=== PATIENT | female | born 1955 | race Caucasian/White ===

== ENCOUNTER 2017-11-19 07:25 | Inpatient (IN) | payer OTHER ==
[2017-11-18 11:33] LABS: BASOPHILS 0.3 % (0-2); EOSINOPHILS 3.5 % (0-7); HEMATOCRIT 40.3 % (36.0-48.0); IMMATURE GRANULOCYTES 0.2 % (0-5); LYMPHOCYTES 28.4 % (15-50); MCH 30.4 pg (26.0-34.0); MCHC 32.3 g/dL (31.0-37.0); MCV 94.4 fL (80.0-100.0); MEAN PLATELET VOLUME 9.7 fL (7.4-10.4); MONOCYTES 9.9 % (2-11); NEUTROPHILS 57.7 % (40-80); PLATELET COUNT 191 10x3/uL (130-400); RBC 4.27 10x6/uL (4.00-5.40); RDW 13.8 % (11.5-14.5); WBC 5.8 10x3/uL (4.8-10.8)
[2017-11-18 11:42] LABS: ANION GAP 10.3 mmol/L (8-16); CALCIUM 9.1 mg/dL (8.5-10.1); CARBON DIOXIDE 30.3 mmol/L (21.0-32.0); CREATININE - SERUM 0.9 mg/dL (0.6-1.3); POTASSIUM - SERUM 3.6 mmol/L (3.5-5.1)
[~2017-11-19] VITALS: Ht 160 cm; Wt 86.6 kg
--- NOTE | ~2017-11-19 | OP ---
PATIENT NAME: KYLE NÚÑEZ MEDICAL RECORD: [id number] LOCATION:[id number] ADMISSION DATE:11/19/17 SURGEON: JAREK RICO MD DATE OF OPERATION: 11/19/2017 PREOPERATIVE DIAGNOSES: 1. Rectosigmoid polyps. 2. Ascending colon polyps. 3. Hyperthyroidism. 4. Hypertension. 5. Hypercholesterolemia. POSTOPERATIVE DIAGNOSES: 1. Rectosigmoid polyps. 2. Ascending colon polyps. 3. Hyperthyroidism. 4. Hypertension. 5. Hypercholesterolemia. PROCEDURE: 1. Hand-assisted laparoscopic right hemicolectomy. 2. Hand-assisted laparoscopic sigmoid colectomy/anterior resection. SURGEON: Jarek Rico MD TRAFFIC SIGN SUPERVISOR: Mayra Dejesus APRN REPORT OF OPERATION: The patient's abdomen was prepped and draped in sterile fashion. A skin incision was made in the midline in the suprapubic region. Electrocautery was used to dissect through the subcutaneous tissues and fascia and we bluntly entered the abdominal cavity. Once inside, the Gelport was inserted with a 5-mm trocar within it. Under direct visualization, a 5 mm trocar was placed in the right lateral abdomen and another was placed in the left lateral abdomen. We started out by mobilizing the patient's right colon. We started on the white line of Toldt and on the right pericolic gutter and took down this portion of the lateral adhesions, mobilizing the colon medially. We mobilized the patient's cecum, right colon and came around the hepatic flexure. Above the hepatic flexure, we took down some of the attachments between the patient's omentum and the transverse colon. We continued this dissection across towards the patient's splenic flexure. Eventually, we left this in place and approached the patient's splenic flexure and performed a mobilization of this portion of the colon by taking down the white line of Toldt of the left pericolic gutter. Again, this portion of the colon was mobilized medially. The colon appeared to be fairly free floating at this point. We came down to sigmoid attachments to the pelvis and abdominal wall. These were taken down using electrocautery. I could then feel the mass present down deep in the patient's pelvis and the rectum. The peritoneum and the rectum was scored on both sides and we began our dissection posterior to the rectum. We got in the avascular plane overlying the patient's sacrum and continued this dissection down posteriorly until we were past the mass. Once we were past the mass, then a window was made in the mesorectum. The rectum was then transected using a 45 blue load Endo-GLORIA stapler and the mesorectum was transected with a couple of fires of a 45 white load Endo-GLORIA stapler. We eventually mobilized some more of the sigmoid colon and eviscerated this through the wound protector. The sigmoid colon was transected using electrocautery about its mid portion. The mesentery OPERATIVE REPORT [id number] KYLE NÚÑEZ was then taken down with sequential clamps and fires of a Harmonic scalpel. The specimen was opened up on the back table and we could see that the large mass was present, but it was very near the staple line. There were a few other small polyps present in the colon. When I looked in the proximal aspect of the sigmoid colon. There was 1 small polyp that was still present. This was excised using electrocautery and sent off for permanent specimen. A pursestring was then placed at the base of the colon and a 29 EEA anvil stapler was inserted. The pursestring was tied down tightly and this portion of the colon was placed back into the abdominal cavity. We then eviscerated the patient's right colon through the wound protector. The terminal ileum was transected with a 45 blue load Endo-GLORIA stapler and the proximal transverse colon was transected with a 45 blue load Endo-GLORIA stapler. The mesentery was taken down with multiple fires of the Harmonic scalpel followed by 2-0 silk on the right colic vessels. This portion of the colon was opened up on the back table and multiple small polyps were noted throughout this portion. A bvak-lz-fypk anastomosis was made between the terminal ileum and the transverse colon. This was done using a 45 blue load Endo-GLORIA stapler. The enterotomies were then closed with a 30 blue load TA stapler. I oversewed the staple line using Lemberted 3-0 silks and then placed this anastomosis in the abdominal cavity. The decision was made to take a little bit more of the patient's rectum since the large polyp was so close to the distal staple line. Dissection was performed of the proximal rectum and eventually we were able to fire a 45 blue load Endo GI stapler across the rectum about 2-3 cm distal to the previous transections. This portion was sent off for permanent specimen. At this point, the 29 EEA stapler was inserted through the patient's rectum and the anastomosis was performed with the indwelling 29 EEA anvil. At the conclusion of this, there was noted to be 2 intact rings of tissue in the EEA stapler device and there was no sign of a leak from the anastomosis when we instilled air through the rectum when the anastomosis was under water. We then irrigated out the abdomen thoroughly with normal saline and took time to assure there was no sign of any active bleeding. The ports and insufflation were then removed. A 19-[place] round Rishi drain was inserted into the abdomen through the left lateral abdominal incision. This was placed retrorectal in the pelvis and sutured into place with a 2-0 nylon. The midline fascia was then closed with running #1 loop PDS' times 2. The subcutaneous tissues were irrigated out thoroughly and reapproximated with interrupted 3-0 Vicryl. The skin incisions were all closed with shannon. During the procedure, a 12-mm trocar had been inserted in the right lower quadrant for firing of the stapler. COMPLICATIONS: None. CONDITION: Stable. ANESTHESIA: General endotracheal. BLOOD LOSS: 50 mL. TRANSINT:[id number] Voice Confirmation ID: [id number] DOCUMENT ID: [id number] OPERATIVE REPORT [id number] KYLE NÚÑEZ CHRISTIAN MD at 1913 CC: RONN TINEO [id number] DICTATION DATE: 11/19/17 1414 TOTER: 11/19/17 1433 ADM IN [facility] [address] [place] [address]
[~2017-11-19 07:25] MED LIST: ASPIRIN EC81 M1 PO; CALCIUM 600 +1 EAC3 PO; CARDURA4 MG PO; LEVOXYL25 MCG PO; PRAVACHOL40 MG PO
[2017-11-19 08:22] VITALS: BP 116/78; BMI 33.9
[2017-11-19 15:35] VITALS: BP 95/53
[2017-11-19 15:57] VITALS: BP 105/49
[2017-11-19 20:00] VITALS: BP 111/51
[2017-11-20] VITALS (7 sets, daily range): BP systolic 89–116; BP diastolic 44–61; Ht 160 cm; Wt 86.6 kg
[2017-11-20 05:53] LABS: BASOPHILS 0 % (0-2); EOSINOPHILS 0 % (0-7); HEMATOCRIT 32.5 % (36.0-48.0); IMMATURE GRANULOCYTES 0.2 % (0-5); MCH 29.9 pg (26.0-34.0); MCHC 31.7 g/dL (31.0-37.0); MCV 94.5 fL (80.0-100.0); MEAN PLATELET VOLUME 10.3 fL (7.4-10.4); MONOCYTES 8.3 % (2-11); NEUTROPHILS 83.5 % (40-80); PLATELET COUNT 170 10x3/uL (130-400); RBC 3.44 10x6/uL (4.00-5.40)
[2017-11-20 06:09] LABS: CALC OSMOLALITY 288 mosm/kg (275-300); CALCIUM 7.9 mg/dL (8.5-10.1); CARBON DIOXIDE 27.7 mmol/L (21.0-32.0); CHLORIDE - SERUM 110 mmol/L (98-107); CREATININE - SERUM 0.8 mg/dL (0.6-1.3); GLUCOSE 106 mg/dL (74-106); POTASSIUM - SERUM 3.7 mmol/L (3.5-5.1); SODIUM 146 mmol/L (136-145); eGFR NON AFRICAN AMERICAN 77 mL/min (90-120)
[2017-11-20 06:10] LABS: UREA NITROGEN 6 mg/dL (7-18)
[2017-11-20 06:13] LABS: HEMOGLOBIN 10.3 g/dL (12-16); WBC 8.8 10x3/uL (4.8-10.8)
[2017-11-21 00:41] VITALS: BP 101/64
[2017-11-21 04:38] VITALS: BP 102/48
[2017-11-21 08:41] VITALS: BP 128/73
[2017-11-21 08:41] LABS: BASOPHILS 0.1 % (0-2); EOSINOPHILS 1.1 % (0-7); HEMATOCRIT 29.6 % (36.0-48.0); HEMOGLOBIN 9.4 g/dL (12-16); IMMATURE GRANULOCYTES 0.2 % (0-5); LYMPHOCYTES 15.1 % (15-50); MCH 30.6 pg (26.0-34.0); MCHC 31.8 g/dL (31.0-37.0); MCV 96.4 fL (80.0-100.0); MONOCYTES 6.2 % (2-11); NEUTROPHILS 77.3 % (40-80); PLATELET COUNT 172 10x3/uL (130-400); RBC 3.07 10x6/uL (4.00-5.40); RDW 14.4 % (11.5-14.5); WBC 9.5 10x3/uL (4.8-10.8)
[2017-11-21 08:49] LABS: CALC OSMOLALITY 282 mosm/kg (275-300); CALCIUM 8.1 mg/dL (8.5-10.1); CARBON DIOXIDE 26.3 mmol/L (21.0-32.0); CHLORIDE - SERUM 110 mmol/L (98-107); CREATININE - SERUM 0.8 mg/dL (0.6-1.3); GLUCOSE 79 mg/dL (74-106); POTASSIUM - SERUM 3.3 mmol/L (3.5-5.1); SODIUM 143 mmol/L (136-145); eGFR NON AFRICAN AMERICAN 77 mL/min (90-120)
[2017-11-21 08:50] LABS: UREA NITROGEN 11 mg/dL (7-18)
[2017-11-21 11:29] VITALS: BP 110/63
[2017-11-21 15:55] VITALS: BP 114/57
[2017-11-21 20:00] VITALS: BP 121/69
[2017-11-22] VITALS: BP 100/64
[2017-11-22 04:00] VITALS: BP 128/71
[2017-11-22 05:02] LABS: BASOPHILS 0.3 % (0-2); EOSINOPHILS 5.8 % (0-7); HEMATOCRIT 28.6 % (36.0-48.0); HEMOGLOBIN 9.1 g/dL (12-16); IMMATURE GRANULOCYTES 0.1 % (0-5); LYMPHOCYTES 23.4 % (15-50); MCH 30.3 pg (26.0-34.0); MCHC 31.8 g/dL (31.0-37.0); MCV 95.3 fL (80.0-100.0); MEAN PLATELET VOLUME 9.9 fL (7.4-10.4); MONOCYTES 8.8 % (2-11); NEUTROPHILS 61.6 % (40-80); PLATELET COUNT 173 10x3/uL (130-400); RDW 14.1 % (11.5-14.5); WBC 7.2 10x3/uL (4.8-10.8)
[2017-11-22 05:21] LABS: CALC OSMOLALITY 282 mosm/kg (275-300); CARBON DIOXIDE 29.2 mmol/L (21.0-32.0); CHLORIDE - SERUM 109 mmol/L (98-107); CREATININE - SERUM 0.8 mg/dL (0.6-1.3); GLUCOSE 102 mg/dL (74-106); POTASSIUM - SERUM 3.3 mmol/L (3.5-5.1); SODIUM 143 mmol/L (136-145); eGFR NON AFRICAN AMERICAN 77 mL/min (90-120)
[2017-11-22 05:29] LABS: UREA NITROGEN 6 mg/dL (7-18)
[2017-11-22 08:12] VITALS: BP 134/75
[2017-11-22] MEDS ORDERED: HYDROCODONE-APA1 TAB PO (09:56)
== END 2017-11-22 12:30 | disposition home or self-care (01) | DRG 331 ==
LOC: D.SDCHOLD 07:25 → D.MS 07:25 → D.SDCHOLD 09:15 → D.MS 14:08
PROVIDERS: Surgery
PROC: 0DBN0ZZ Excision of Sigmoid Colon, Open Approach (ICD-10-PCS; 2017-11-19)
PROC: 0DBP0ZZ Excision of Rectum, Open Approach (ICD-10-PCS; 2017-11-19)
PROC: 0DTF0ZZ Resection of Right Large Intestine, Open Approach (ICD-10-PCS; principal; 2017-11-19 10:00)
DX: K63.5 Polyp of colon (principal); K62.1 Rectal polyp; E05.90 Thyrotoxicosis, unspecified without thyrotoxic crisis or storm; I10 Essential (primary) hypertension; E78.00 Pure hypercholesterolemia, unspecified

== ENCOUNTER 2018-01-18 10:51 | Inpatient (IN) | payer OTHER ==
[~2018-01-18] VITALS: Ht 160 cm; Wt 81.6 kg
[~2018-01-18 10:51] MED LIST changes: +HYDROCODONE-APA1 TAB PO
[2018-01-18 11:20] LABS: BASOPHILS 0.1 % (0-2); HEMATOCRIT 35.3 % (36.0-48.0); HEMOGLOBIN 11.1 g/dL (12-16); IMMATURE GRANULOCYTES 0.1 % (0-5); LYMPHOCYTES 13.5 % (15-50); MCH 29.6 pg (26.0-34.0); MCHC 31.4 g/dL (31.0-37.0); MCV 94.1 fL (80.0-100.0); MEAN PLATELET VOLUME 10.2 fL (7.4-10.4); MONOCYTES 13.2 % (2-11); NEUTROPHILS 71.1 % (40-80); PLATELET COUNT 210 10x3/uL (130-400); RBC 3.75 10x6/uL (4.00-5.40); RDW 13.9 % (11.5-14.5); WBC 10.3 10x3/uL (4.8-10.8)
[2018-01-18 11:32] LABS: ALBUMIN 3.2 g/dL (3.4-5.0); ANION GAP 9.7 mmol/L (8-16); BILIRUBIN - TOTAL 0.32 mg/dL (0.2-1.3); CALCIUM 9.1 mg/dL (8.5-10.1); CARBON DIOXIDE 29.6 mmol/L (21.0-32.0); CREATININE - SERUM 0.9 mg/dL (0.6-1.3); POTASSIUM - SERUM 3.3 mmol/L (3.5-5.1); PROTEIN - SERUM 7.1 g/dL (6.4-8.2)
[2018-01-18 13:00] VITALS: BP 126/77
[2018-01-18 15:00] VITALS: BP 119/73
[2018-01-18 15:13] LABS: APPEARANCE CLEAR (CLEAR); COLOR YELLOW (YELLOW); GLUCOSE NEGATIVE (NEGATIVE); KETONE SMALL mg/dL (NEGATIVE); NITRITE NEGATIVE (NEGATIVE); PROTEIN NEGATIVE (NEGATIVE); UROBILINOGEN NORMAL (NORMAL)
[2018-01-18 15:14] LABS: BILIRUBIN NEGATIVE (NEGATIVE)
[2018-01-18 17:57] VITALS: BP 121/73
[2018-01-19] VITALS: BP 126/60
[2018-01-19 01:48] VITALS: BP 131/72; BMI 31.9
[2018-01-19 04:00] VITALS: BP 158/65
[2018-01-19 05:45] LABS: BASOPHILS 0.3 % (0-2); EOSINOPHILS 4.4 % (0-7); HEMATOCRIT 33.8 % (36.0-48.0); HEMOGLOBIN 10.3 g/dL (12-16); IMMATURE GRANULOCYTES 0.1 % (0-5); LYMPHOCYTES 27.3 % (15-50); MCHC 30.5 g/dL (31.0-37.0); MCV 95.2 fL (80.0-100.0); MEAN PLATELET VOLUME 10.6 fL (7.4-10.4); NEUTROPHILS 54.9 % (40-80); PLATELET COUNT 204 10x3/uL (130-400); RBC 3.55 10x6/uL (4.00-5.40)
[2018-01-19 05:48] LABS: WBC 7.6 10x3/uL (4.8-10.8)
[2018-01-19 06:27] LABS: ALBUMIN 2.7 g/dL (3.4-5.0); ALKALINE PHOSPHATASE 96 U/L (46-116); BILIRUBIN - TOTAL 0.23 mg/dL (0.2-1.3); CALCIUM 8.3 mg/dL (8.5-10.1); CARBON DIOXIDE 25.2 mmol/L (21.0-32.0); CHLORIDE - SERUM 108 mmol/L (98-107); CREATININE - SERUM 0.8 mg/dL (0.6-1.3); GLUCOSE 80 mg/dL (74-106); POTASSIUM - SERUM 3.4 mmol/L (3.5-5.1); PROTEIN - SERUM 6.1 g/dL (6.4-8.2); SODIUM 141 mmol/L (136-145); eGFR NON AFRICAN AMERICAN 77 mL/min (90-120)
[2018-01-19 06:28] LABS: ALT (SGPT) 26 U/L (10-68); CALC OSMOLALITY 277 mosm/kg (275-300); UREA NITROGEN 6 mg/dL (7-18)
[2018-01-19 08:15] VITALS: BP 139/81
[2018-01-19 12:19] VITALS: BP 128/76
[2018-01-19 20:00] VITALS: BP 147/73
[2018-01-20 04:36] LABS: BASOPHILS 0.4 % (0-2); EOSINOPHILS 7.2 % (0-7); HEMATOCRIT 31.4 % (36.0-48.0); HEMOGLOBIN 9.7 g/dL (12-16); IMMATURE GRANULOCYTES 0.2 % (0-5); LYMPHOCYTES 26.5 % (15-50); MCH 29.3 pg (26.0-34.0); MCHC 30.9 g/dL (31.0-37.0); MCV 94.9 fL (80.0-100.0); MEAN PLATELET VOLUME 10.1 fL (7.4-10.4); MONOCYTES 13.8 % (2-11); NEUTROPHILS 51.9 % (40-80); PLATELET COUNT 189 10x3/uL (130-400); RBC 3.31 10x6/uL (4.00-5.40); RDW 13.9 % (11.5-14.5)
[2018-01-20 04:47] LABS: WBC 5.3 10x3/uL (4.8-10.8)
[2018-01-20 05:10] LABS: ALBUMIN 2.5 g/dL (3.4-5.0); ALKALINE PHOSPHATASE 91 U/L (46-116); ALT (SGPT) 23 U/L (10-68); BILIRUBIN - TOTAL 0.16 mg/dL (0.2-1.3); CALC OSMOLALITY 281 mosm/kg (275-300); CALCIUM 8.2 mg/dL (8.5-10.1); CARBON DIOXIDE 27.5 mmol/L (21.0-32.0); CHLORIDE - SERUM 109 mmol/L (98-107); CREATININE - SERUM 0.7 mg/dL (0.6-1.3); GLUCOSE 87 mg/dL (74-106); MAGNESIUM - SERUM 1.8 mg/dL (1.8-2.4); POTASSIUM - SERUM 3.5 mmol/L (3.5-5.1); PROTEIN - SERUM 5.8 g/dL (6.4-8.2); SODIUM 144 mmol/L (136-145); eGFR NON AFRICAN AMERICAN 90 mL/min (90-120)
[2018-01-20 05:20] LABS: PHOSPHOROUS 1.5 mg/dL (2.5-4.9); UREA NITROGEN 2 mg/dL (7-18)
[2018-01-20 05:27] VITALS: BP 143/74
[2018-01-20 07:49] LABS: % SATURATION 15 % (15-55); IRON 31 ug/dl (35-150); TOTAL IRON BIND CAPACITY 200 ug/dl (260-445); UNSAT IRON BIND CAPACITY 169 ug/dl (150-375)
[2018-01-20 13:16] VITALS: BP 151/82
[2018-01-20 14:59] VITALS: Ht 160 cm; Wt 81.6 kg
[2018-01-20 17:05] VITALS: BP 149/79
[2018-01-20 20:35] VITALS: BP 144/77
[2018-01-21 01:28] VITALS: BP 134/74
[2018-01-21 04:19] VITALS: BP 154/84
[2018-01-21 05:06] LABS: BASOPHILS 0.4 % (0-2); EOSINOPHILS 8.8 % (0-7); HEMATOCRIT 32.3 % (36.0-48.0); HEMOGLOBIN 10.1 g/dL (12-16); IMMATURE GRANULOCYTES 0.2 % (0-5); LYMPHOCYTES 33.3 % (15-50); MCH 29.5 pg (26.0-34.0); MCHC 31.3 g/dL (31.0-37.0); MCV 94.4 fL (80.0-100.0); MEAN PLATELET VOLUME 9.9 fL (7.4-10.4); MONOCYTES 10.9 % (2-11); NEUTROPHILS 46.4 % (40-80); PLATELET COUNT 217 10x3/uL (130-400); RBC 3.42 10x6/uL (4.00-5.40); RDW 13.7 % (11.5-14.5); WBC 5.3 10x3/uL (4.8-10.8)
[2018-01-21 05:37] LABS: ALBUMIN 2.6 g/dL (3.4-5.0); ALKALINE PHOSPHATASE 82 U/L (46-116); ALT (SGPT) 21 U/L (10-68); BILIRUBIN - TOTAL 0.15 mg/dL (0.2-1.3); CALC OSMOLALITY 283 mosm/kg (275-300); CALCIUM 8.3 mg/dL (8.5-10.1); CARBON DIOXIDE 29.6 mmol/L (21.0-32.0); CHLORIDE - SERUM 109 mmol/L (98-107); CREATININE - SERUM 0.7 mg/dL (0.6-1.3); GLUCOSE 93 mg/dL (74-106); MAGNESIUM - SERUM 1.8 mg/dL (1.8-2.4); POTASSIUM - SERUM 3.9 mmol/L (3.5-5.1); PROTEIN - SERUM 5.8 g/dL (6.4-8.2); SODIUM 144 mmol/L (136-145); eGFR NON AFRICAN AMERICAN 90 mL/min (90-120)
[2018-01-21 05:59] LABS: PHOSPHOROUS 3.9 mg/dL (2.5-4.9); UREA NITROGEN 5 mg/dL (7-18)
[2018-01-21] MEDS ORDERED: DIFLUCAN100 MG PO (07:05)
[2018-01-21] MEDS ORDERED: VANCOMYCIN250 MG/51 PO (07:06)
[2018-01-21] MEDS ORDERED: MONISTAT-7 VAG45 G1 VG (07:07)
[2018-01-21] MEDS ORDERED: FLAGYL500 MG PO (07:07)
[2018-01-21] MEDS ORDERED: FLORASTOR250 MG PO (07:08)
[2018-01-21 08:20] VITALS: BP 137/86
[2018-01-21 09:19] LABS: FOLATE (FOLIC ACID) - SERUM 6.6 ng/mL (>3.0)
[2018-01-24 20:08] LABS: OVA + PARASITE EXAM Final report (())
== END 2018-01-21 10:40 | disposition home or self-care (01) | DRG 373 ==
LOC: D.ER 10:51 → D.MS 17:52 → D.EDHOLD 17:52 → D.MS 19:22
PROVIDERS: Family Medicine
DX: A04.72 Enterocolitis due to Clostridium difficile, not specified as recurrent (principal); I10 Essential (primary) hypertension; E78.5 Hyperlipidemia, unspecified; E03.9 Hypothyroidism, unspecified; D64.9 Anemia, unspecified